=== PATIENT | male | born 1990 | race Caucasian/White ===

== ENCOUNTER 2016-11-18 18:58 | Emergency (ER) | payer BC ==
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
[2016-11-18] MEDS ORDERED: ONDANSETRON DISINTEGRATING 4 MG TAB ONE (19:55)
[2016-11-18] MEDS ORDERED: ONDANSETRON DISINTEGRATING 4 MG TAB PO ONE (19:57)
[2016-11-18] MEDS ORDERED: CEPHALEXIN 500MG PREPACK#4 BTL TAKEHOME ONE (20:35)
[2016-11-18 20:54] VITALS: BP 128/73; PULSE 76; RESP 16; TEMP 98.1; O2SAT 97
== END 2016-11-18 20:55 | disposition home or self-care (01) ==
PROC: 0HQGXZZ Repair Left Hand Skin, External Approach (ICD-10-PCS; principal; 2016-11-18)
DX: S61.315A Laceration without foreign body of left ring finger with damage to nail, initial encounter (principal); F17.200 Nicotine dependence, unspecified, uncomplicated; W23.1XXA Caught, crushed, jammed, or pinched between stationary objects, initial encounter

== ENCOUNTER 2017-01-16 15:19 | Emergency (ER) | payer BC ==
[2017-01-16 15:32] VITALS: RESP 16; TEMP 98.1
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
[2017-01-16] MEDS ORDERED: ONDANSETRON DISINTEGRATING 4 MG TAB PO ONE (15:53)
[2017-01-16] MEDS ORDERED: ACETAMINOPHEN 325 MG TAB PO ONE (15:53)
[2017-01-16] MEDS ORDERED: IBUPROFEN 600 MG TAB PO ONE (16:52)
[2017-01-16 17:00] VITALS: BP 133/85; PULSE 96; O2SAT 95
== END 2017-01-16 17:00 | disposition home or self-care (01) ==
DX: S06.0X0A Concussion without loss of consciousness, initial encounter (principal); S00.83XA Contusion of other part of head, initial encounter; S16.1XXA Strain of muscle, fascia and tendon at neck level, initial encounter; Y04.8XXA Assault by other bodily force, initial encounter; F17.200 Nicotine dependence, unspecified, uncomplicated